=== PATIENT | male | born 1995 | race Caucasian/White ===

== ENCOUNTER 2018-09-19 00:39 | Emergency (ER) | payer BC ==
[2018-09-19] MEDS ORDERED: predniSONE 20 MG Tab PO ONE (00:40)
[2018-09-19] MEDS ORDERED: Albuterol 0.083% 2.5 MG/3 ML Neb Soln INH ONE (00:40)
[2018-09-19 00:57] VITALS: BP 140/82
[2018-09-19] MEDS ORDERED: Albuterol 0.083% 2.5 MG/3 ML Neb Soln NEB ONE (01:31)
[2018-09-19] MEDS ORDERED: predniSONE 20 MG Tab ONE (01:37)
[2018-09-19] MEDS ORDERED: Albuterol 0.083% 2.5 MG/3 ML Neb Soln ONE (01:37)
--- NOTE | 2018-09-19 01:45 | EDM.PDOC ---
ED HPI GENERAL MEDICAL PROBLEM - General Chief Complaint: Respiratory Problem Stated Complaint: TROUBLE BREATHING [id number] Time Seen by Provider: 09/19/18 00:55 Source of Information: Reports: Patient History Limitations: Reports: No Limitations - History of Present Illness INITIAL COMMENTS - FREE TEXT/NARRATIVE: C/o increasing SOB past 3 days, worse tonight, no fever. Hx asthma, Start of cold sx. cough congestion. Smoker. Has inhaler, last used at 1 pm. Has nebulizer but medication long . - Related Data Allergies Allergy/AdvReac Type Severity Reaction Status Date / Time seasonal Allergy Sneezing Uncoded 09/19/18 00:44 Home Meds: Home Meds Cetirizine [ZyrTEC] 10 mg PO DAILY PRN 03/15/16 [History] Albuterol Sulfate 1 unit INH ASDIRECTED PRN 09/19/18 [History] Albuterol Sulfate [Proair Hfa] 2 puff INH ASDIRECTED PRN 09/19/18 [History] Past Medical History - Past Health History Medical/Surgical History: Denies Medical/Surgical History HEENT History: Reports: None Cardiovascular History: Reports: None Respiratory History: Reports: Asthma Gastrointestinal History: Reports: None Genitourinary History: Reports: None Musculoskeletal History: Reports: None Neurological History: Reports: None Psychiatric History: Reports: None Endocrine/Metabolic History: Reports: None Hematologic History: Reports: None Immunologic History: Reports: None Oncologic (Cancer) History: Reports: None Dermatologic History: Reports: None Social & Family History - Family History Family Medical History: Noncontributory - Tobacco Use Smoking Status *Q: Current Some Day Smoker Years of Tobacco use: 2 Packs/Tins Daily: 0.1 ED ROS GENERAL - Review of Systems Review Of Systems: ROS reveals no pertinent complaints other than HPI. ED EXAM, GENERAL - Physical Exam Exam: See Below Exam Limited By: No Limitations General Appearance: Alert, No Apparent Distress Eye Exam: Bilateral Eye: EOMI Ears: Normal External Exam Ear Exam: Bilateral Ear: TM normal Nose: Nasal Drainage (clear) Throat/Mouth: Normal Inspection Head: Atraumatic, Normocephalic Neck: Normal Inspection. No: Lymphadenopathy (L), Lymphadenopathy (R) Respiratory/Chest: No Respiratory Distress, Other (diminished scattered wheeze bilateral ) Cardiovascular: Normal Peripheral Pulses, Regular Rate, Rhythm GI/Abdominal: Normal Bowel Sounds, Soft Back Exam: Full Range of Motion Neurological: Alert, Oriented Psychiatric: Normal Affect, Normal Mood Skin Exam: Warm, Dry, Intact, Normal Color Course - Vital Signs Last Recorded V/S: Last Vital Signs Temp 99.8 F 09/19/18 00:40 Pulse 84 09/19/18 00:40 Resp 16 09/19/18 00:40 BP 140/82 09/19/18 00:40 Pulse Ox 97 09/19/18 00:40 - Orders/Labs/Meds Orders: Active Orders 24 hr Category Date Time Status RT Aerosol Therapy [RC] ASDIRECTED Care 09/19/18 01:31 Active Meds: Medications Discontinued Medications Generic Name Dose Route Start Last Admin Trade Name Freq PRN Reason Stop Dose Admin Albuterol 2.5 mg 09/19/18 01:31 09/19/18 01:34 Proventil Neb Soln NEB 09/19/18 01:32 2.5 mg ONETIME ONE Administration - Re-Assessments/Exams Free Text/Narrative Re-Assessment/Exam: 09/19/18 01:51 Improved air exchange post neb No wheeze present 09/19/18 01:55 Departure - Departure Time of Disposition: 01:47 Disposition: Home, Self-Care 01 Condition: Good Clinical Impression: Acute asthma - Discharge Information *PRESCRIPTION DRUG MONITORING PROGRAM REVIEWED*: Not Applicable *COPY OF PRESCRIPTION DRUG MONITORING REPORT IN PATIENT TYRONE: Not Applicable Instructions: Asthma, Adult, [id number] Additional Instructions: humidification albuterol nebulizer OR inhaler every 4 hours as needed for cough wheezing prednisone 40mg this am then 20mg daily x 3 days then 10mg daily x 3 days follow up if symptoms worsen or not improving - My Orders Last 24 Hours: My Active Orders 09/19/18 01:31 RT Aerosol Therapy [RC] ASDIRECTED - Assessment/Plan Last 24 Hours: My Active Orders 09/19/18 01:31 RT Aerosol Therapy [RC] ASDIRECTED
== END 2018-09-19 01:55 | disposition home or self-care (01) ==
LOC: DL.ED 00:39
DX: J45.909 Unspecified asthma, uncomplicated (principal); F17.210 Nicotine dependence, cigarettes, uncomplicated
CPT/HCPCS: 94640; 99284; A9270; J7613-GY

== ENCOUNTER 2019-02-26 15:14 | Emergency (ER) | payer BC ==
[2019-02-26] MEDS ORDERED: Bacitracin Oint 1 GM U/D Packet TOP ONE (16:00)
[2019-02-26] MEDS ORDERED: Lidocaine 1% 30 ML SDV INJECT ONE (16:00)
[2019-02-26 16:36] VITALS: BP 141/76
--- NOTE | 2019-02-27 17:32 | EDM.PDOC ---
Scribed by Missy Del Rosario 02/26/19 [id number] for Augustina Eduardo NP ED HPI GENERAL MEDICAL PROBLEM - General Chief Complaint: Laceration Stated Complaint: thumb laceration Time Seen by Provider: 02/26/19 15:22 Source of Information: Reports: Patient, RN, RN Notes Reviewed History Limitations: Reports: No Limitations - History of Present Illness INITIAL COMMENTS - FREE TEXT/NARRATIVE: Pt to ER with c/o laceration. Patient states he dropped an exhaust pipe on his left thumb, lacerating the thumb. Patient states he is up to date on his tetanus vaccination. Onset: Today, Sudden - Related Data Allergies Allergy/AdvReac Type Severity Reaction Status Date / Time seasonal Allergy Sneezing Uncoded 02/26/19 15:21 Home Meds: Home Meds Cetirizine [ZyrTEC] 10 mg PO DAILY PRN 03/15/16 [History] Albuterol Sulfate 1 unit INH ASDIRECTED PRN 09/19/18 [History] Albuterol Sulfate [Proair Hfa] 2 puff INH ASDIRECTED PRN 09/19/18 [History] Past Medical History - Past Health History Medical/Surgical History: Denies Medical/Surgical History HEENT History: Reports: None Cardiovascular History: Reports: None Respiratory History: Reports: Asthma Gastrointestinal History: Reports: None Genitourinary History: Reports: None Musculoskeletal History: Reports: None Neurological History: Reports: None Psychiatric History: Reports: None Endocrine/Metabolic History: Reports: None Hematologic History: Reports: None Immunologic History: Reports: None Oncologic (Cancer) History: Reports: None Dermatologic History: Reports: None - Infectious Disease History Infectious Disease History: Reports: None - Past Surgical History Head Surgeries/Procedures: Reports: None Social & Family History - Family History Family Medical History: Noncontributory - Tobacco Use Smoking Status *Q: Current Every Day Smoker Years of Tobacco use: 2 Packs/Tins Daily: 1 - Caffeine Use Caffeine Use: Reports: None - Recreational Drug Use Recreational Drug Use: No ED ROS GENERAL - Review of Systems Review Of Systems: ROS reveals no pertinent complaints other than HPI. ED EXAM, SKIN/RASH Exam: See Below Exam Limited By: No Limitations General Appearance: Alert, WD/WN, No Apparent Distress Eye Exam: Bilateral Eye: EOMI, Normal Inspection Ears: Normal External Exam, Hearing Grossly Normal Nose: Normal Inspection Throat/Mouth: Normal Inspection, Normal Voice, No Airway Compromise Head: Atraumatic, Normocephalic Neck: Normal Inspection, Supple, Non-Tender, Full Range of Motion Respiratory/Chest: No Respiratory Distress, Lungs Clear, Normal Breath Sounds, No Accessory Muscle Use, Chest Non-Tender Cardiovascular: Normal Peripheral Pulses, Regular Rate, Rhythm, No Edema, No Gallop, No JVD, No Murmur, No Rub Peripheral Pulses: 2+: Radial (L), Radial (R) GI/Abdominal: Normal Bowel Sounds, Soft, Non-Tender (Male) Exam: Deferred Rectal (Males) Exam: Deferred Back Exam: Normal Inspection, Full Range of Motion, NT Extremities: Normal Inspection, Normal Range of Motion, Non-Tender, No Pedal Edema, Normal Capillary Refill Neurological: Alert, Oriented, CN II-XII Intact, Normal Cognition, Normal Gait, Normal Reflexes, No Motor/Sensory Deficits Psychiatric: Normal Affect, Normal Mood Skin: Warm, Dry, Normal Color, No Rash, Other (laceration left thumb) Location, Skin: Upper Extremity, Left Characteristics: Linear Lymphatic: No Adenopathy ED SKIN PROCEDURES - Laceration/Wound Repair Left Dorsal Digit - 1st (Thumb) Lac/Wound length In cm: 2.5 Distal NVT: Neuro & Vascular Intact Anesthetic Type: Local Local Anesthesia - Lidocaine (Xylocaine): 1% Plain Local Anesthetic Volume: 4cc Skin Prep: Chlorhexidine (Hibiciens) Exploration/Debridement/Repair: Wound Explored, In a Bloodless Field, Explored to Base, No Foreign Material Found Closed with: Sutures Suture Size: 4-0 # of Sutures: 4 Suture Type: Nylon, Interrupted Drain Placement: No Sterile Dressing Applied: Provider Tetanus Status Addressed: Yes Complications: No Course - Vital Signs Last Recorded V/S: Last Vital Signs Temp 98.6 F 02/26/19 15:22 Pulse 100 02/26/19 15:22 Resp 16 02/26/19 15:22 BP 141/76 H 02/26/19 15:22 Pulse Ox 100 02/26/19 15:22 - Orders/Labs/Meds Meds: Medications Discontinued Medications Generic Name Dose Route Start Last Admin Trade Name Freq PRN Reason Stop Dose Admin Bacitracin 1 dose 02/26/19 16:00 02/26/19 16:05 Bacitracin Oint 1 Gm TOP 02/26/19 16:01 1 dose ONETIME ONE Administration Lidocaine HCl 30 ml 02/26/19 16:00 02/26/19 16:05 Xylocaine-Mpf 1% INJECT 02/26/19 16:01 10 ml ONETIME ONE Administration Departure - Departure Time of Disposition: 16:21 Disposition: Home, Self-Care 01 Condition: Fair Clinical Impression: Laceration - Discharge Information *PRESCRIPTION DRUG MONITORING PROGRAM REVIEWED*: No *COPY OF PRESCRIPTION DRUG MONITORING REPORT IN PATIENT TYRONE: No Instructions: Laceration Care, Adult, [id number], Stitches, Enrique, or Adhesive Wound Closure, [id number] Forms: ED Department Discharge Additional Instructions: Keep area covered, clean and dry Monitor for signs of infection (warmth, redness, drainage) Follow up with your primary care facility to have sutures removed in 7-10 days I have read and agree with the documentation that has been completed regarding this visit. By signing this record, I attest that the documentation was completed in my physical presence and is an accurate record of the encounter.
== END 2019-02-26 16:26 | disposition home or self-care (01) ==
LOC: DL.ED 15:14
DX: S61.012A Laceration without foreign body of left thumb without damage to nail, initial encounter (principal); F17.210 Nicotine dependence, cigarettes, uncomplicated; W20.8XXA Other cause of strike by thrown, projected or falling object, initial encounter; Z79.899 Other long term (current) drug therapy
CPT/HCPCS: 12001; 99283; J2001; 12002